=== PATIENT | male | born 1985 | race Caucasian/White ===

== ENCOUNTER 2016-11-13 03:49 | Emergency (ER) | payer SELFPAY ==
[~2016-11-13] VITALS: Ht 185.4 cm; Wt 103.0 kg
[~2016-11-13 03:49] MED LIST: IBUP600 PO; PENI500T PO; PERC5TAB12 PO; TAMS0.4C67 PO; TRAM50TA PO
[2016-11-13 03:54] VITALS: BP 163/118; PULSE 85; RESP 16; TEMP 97.8; O2SAT 99
[2016-11-13] MEDS ORDERED: SODIUM CHLOR 0.9% 1000 ML INJ 1,000 ML IV ONE (04:03)
--- NOTE | 2016-11-13 04:06 | PD ---
HPI Chief Complaint: flank pain Time Seen by Provider: 04:03 Travel History International Travel<30 days: No Contact w/Intl Traveler<30days: No Traveled to known affect area: No History of Present Illness HPI 31-year-old male presents to the emergency department for sudden onset right flank pain that awakened him from sleep 1 hour prior to arrival to the emergency department with associated nausea and diaphoresis. Patient reports 1 year ago was diagnosed with kidney stone. No fever no chills no hematemesis no coffee-ground emesis no melena hematochezia. No reported dysuria frequency urgency or hematuria. Pain is severe and unremitting. No medications prior to arrival to the emergency department. PFSH Past Medical History Narrative Medical Kidney stones; tobacco use marijuana use; nursing notes reviewed Diminished Hearing: No Social History Alcohol Use: No (NOT FOR 2 YEARS) Tobacco Use: Yes Substance Use: Yes (MARIJUANA OCC) Allergies-Medications (Allergen,Severity, Reaction): Coded Allergies: Shellfish (Verified Allergy, Severe, Anaphylaxis, 11/13/16) Reported Meds & Prescriptions Reported Meds & Active Scripts Active Percocet (Oxycodone-Acetaminophen) 5-325 mg Tab 1 Tab PO Q6H PRN Ibuprofen 800 Mg Tab 800 Mg PO Q8H PRN Flomax (Tamsulosin HCl) 0.4 Mg Cap 0.4 Mg PO HS Zofran Odt (Ondansetron Odt) 4 Mg Tab 4 Mg SL Q6HR PRN Penicillin V Potassium 500 Mg Tab 500 Mg PO Q8H Tramadol (Tramadol HCl) 50 Mg Tab 50 Mg PO Q6H PRN Flomax (Tamsulosin HCl) 0.4 Mg Cap 0.4 Mg PO DAILY Motrin 600 Mg Tab (Ibuprofen) 600 Mg Tab 600 Mg PO Q6H PRN Percocet 5-325 mg (Oxycodone/Acetaminophen) 1 Tab 1 Tab PO Q6H PRN Review of Systems Except as stated in HPI: all other systems reviewed are Neg General / Constitutional: No: Fever HENT: No: Congestion Cardiovascular: No: Chest Pain or Discomfort Respiratory: No: Shortness of Breath Gastrointestinal: Positive: Nausea, No: Abdominal Pain Genitourinary: Positive: Flank Pain, No: Dysuria, Hematuria Musculoskeletal: No: Myalgias, Arthralgias Skin: No Rash Neurologic: No: Weakness Psychiatric: No: Anxiety Hematologic/Lymphatic: No: Lymph Node Enlargement Physical Exam Narrative GENERAL: Well-developed well-nourished male in obvious discomfort holding the right flank SKIN: Warm and dry. HEAD: Normocephalic. EYES: No scleral icterus. No injection or drainage. NECK: Supple, trachea midline. No JVD or lymphadenopathy. CARDIOVASCULAR: Regular rate and rhythm without murmurs, gallops, or rubs. RESPIRATORY: Breath sounds equal bilaterally. No accessory muscle use. GASTROINTESTINAL: Abdomen soft, non-tender, nondistended. MUSCULOSKELETAL: No cyanosis, or edema. BACK: Nontender without obvious deformity. Right CVA tenderness. Data Data Last Documented VS Vital Signs Date Time Temp Pulse Resp B/P Pulse Ox O2 Delivery O2 Flow Rate FiO2 11/13/16 04:15 20 11/13/16 03:54 97.8 85 163/118 99 Orders Complete Blood Count With Diff (11/13/16 04:03) Basic Metabolic Panel (Bmp) (11/13/16 04:03) Urinalysis - C+S If Indicated (11/13/16 04:03) Ct Abd/Pel W/O Iv Contrast (11/13/16 04:03) Ecg Monitoring (11/13/16 04:03) Iv Access Insert/Monitor (11/13/16 04:03) Ketorolac Inj (Toradol Inj) (11/13/16 04:15) Ondansetron Inj (Zofran Inj) (11/13/16 04:15) Sodium Chloride 0.9% Flush (Ns Flush) (11/13/16 04:15) Sodium Chlor 0.9% 1000 Ml Inj (Ns 1000 M (11/13/16 04:03) Tamsulosin (Flomax) (11/13/16 05:00) Labs Laboratory Tests Test 11/13/16 11/13/16 04:00 05:05 White Blood Count 9.9 TH/MM3 Red Blood Count 5.39 MIL/MM3 Hemoglobin 15.8 GM/DL Hematocrit 46.6 % Mean Corpuscular Volume 86.5 FL Mean Corpuscular Hemoglobin 29.4 PG Mean Corpuscular Hemoglobin 34.0 % Concent Red Cell Distribution Width 12.2 % Platelet Count 223 TH/MM3 Mean Platelet Volume 8.9 FL Neutrophils (%) (Auto) 56.6 % Lymphocytes (%) (Auto) 33.7 % Monocytes (%) (Auto) 6.7 % Eosinophils (%) (Auto) 2.1 % Basophils (%) (Auto) 0.9 % Neutrophils # (Auto) 5.6 TH/MM3 Lymphocytes # (Auto) 3.3 TH/MM3 Monocytes # (Auto) 0.7 TH/MM3 Eosinophils # (Auto) 0.2 TH/MM3 Basophils # (Auto) 0.1 TH/MM3 CBC Comment DIFF FINAL Differential Comment Sodium Level 145 MEQ/L Potassium Level 4.1 MEQ/L Chloride Level 110 MEQ/L Carbon Dioxide Level 25.2 MEQ/L Anion Gap 10 MEQ/L Blood Urea Nitrogen 12 MG/DL Creatinine 1.00 MG/DL Estimat Glomerular Filtration 87 ML/MIN Rate Random Glucose 108 MG/DL Calcium Level 8.9 MG/DL Urine Color GALI Urine Turbidity MOD Urine pH 5.5 Urine Specific [place] 1.022 Urine Protein TRACE mg/dL Urine Glucose (UA) NEG mg/dL Urine Ketones NEG mg/dL Urine Occult Blood LARGE Urine Nitrite NEG Urine Bilirubin NEG Urine Leukocyte Esterase NEG Urine RBC INNUM /hpf Urine Squamous Epithelial 0-5 /hpf Cells Urine Mucus MANY /lpf Urine Yeast (Budding) FEW Microscopic Urinalysis Comment CULT NOT INDICATED MDM Medical Decision Making Medical Screen Exam Complete: Yes Emergency Medical Condition: Yes Medical Record Reviewed: Yes Interpretation(s) UA: lg blood innum rbc's cx not indicated Last Impressions Abdomen/Pelvis CT 11/13/16 0403 Signed Impressions: Service Date/Time: Sunday, November 13, 2016 04:10 - CONCLUSION: 1. Mild obstructive uropathy on the right secondary to right UVJ calculus measuring 2 mm. 2. Punctate nonobstructing right renal calculus measuring 2 mm. 3. Diverticulosis without diverticulitis. Dimitry Menjivar MD CBC & BMP Diagram 11/13/16 04:00 Vital Signs Date Time Temp Pulse Resp B/P Pulse Ox O2 Delivery O2 Flow Rate FiO2 11/13/16 04:15 20 11/13/16 03:54 97.8 85 16 163/118 99 Differential Diagnosis renal colic obstructive uropathy uti Narrative Course Patient placed on monitor; IV access obtained; patient administered 1 L normal saline, Zofran 4 mg IV, and Toradol 30 mg IV; CT abdomen and pelvis kidney stone protocol ordered @ 4:55 am patient identified to have a distal right ureteral UVJ 2 mm stone with mild obstructive uropathy; patient reports symptoms improved At 5:24 AM urinalysis is consistent with blood culture not indicated; pain is 0/ 10 in intensity; patient is stable for outpatient management Diagnosis Primary Impression: Right nephrolithiasis Additional Impression: Obstructive uropathy Referrals: Urologist call for appointment Patient Instructions: General Instructions Med/Other Pt SpecificInfo: Prescription(s) given Scripts Oxycodone-Acetaminophen (Percocet)5-325 mg Tab1 Tab PO Q6H PRN (PAIN) #12 TAB Ref 0 Prov:Giuliana Avila MD 11/13/16 Ibuprofen 800 Mg Rxj851 Mg PO Q8H PRN (PAIN GREATER THAN 5) #12 TAB Ref 0 Prov:Giuliana Avila MD 11/13/16 Tamsulosin (Flomax)0.4 Mg Cap0.4 Mg PO HS #7 CAP Ref 0 Prov:Giuliana Avila MD 11/13/16 Ondansetron Odt (Zofran Odt)4 Mg Tab4 Mg SL Q6HR PRN (Nausea/Vomiting) #10 TAB Ref 0 Prov:Giuliana Avila MD 11/13/16 Disposition: 01 DISCHARGE HOME Condition: Stable Giuliana Avila MD Nov 13, 2016 04:06
[2016-11-13 04:13] LABS: AUTOMATED NEUTROPHIL # 5.6 TH/MM3 (1.8-7.7); BASOPHIL # 0.1 TH/MM3 (0-0.2); BASOPHIL % 0.9 % (0.0-2.0); EOSINOPHIL # 0.2 TH/MM3 (0-0.4); EOSINOPHIL % 2.1 % (0.0-4.0); HEMATOCRIT 46.6 % (39.0-51.0); LYMPH % 33.7 % (9.0-44.0); LYMPHOCYTE # 3.3 TH/MM3 (1.0-4.8); MEAN CELL VOLUME 86.5 FL (80.0-100.0); MEAN CORPUSCULAR HEMOGLOBIN 29.4 PG (27.0-34.0); MONO % 6.7 % (0.0-8.0); NEUT % 56.6 % (16.0-70.0); PLATELET COUNT 223 TH/MM3 (150-450); RED BLOOD COUNT 5.39 MIL/MM3 (4.50-5.90); RED CELL DISTRIBUTION WIDTH 12.2 % (11.6-17.2); WHITE BLOOD COUNT 9.9 TH/MM3 (4.0-11.0)
[2016-11-13] MEDS ORDERED: ONDANSETRON HCL 4 MG/2 ML VIAL IVP ONE (04:15)
[2016-11-13] MEDS ORDERED: KETOROLAC TROMETHAMINE 30 MG/ML (IVP) VIAL IVP ONE (04:15)
[2016-11-13] MEDS ORDERED: SODIUM CHLORIDE 0.9% FLUSH 10 ML FLUSH IVF PRN (04:15)
[2016-11-13 04:17] LABS: HEMO FLAGS DIFF FINAL
[2016-11-13 04:26] LABS: POTASSIUM 4.1 MEQ/L (3.5-5.1)
[2016-11-13 04:29] LABS: BICARBONATE 25.2 MEQ/L (21.0-32.0)
--- NOTE | 2016-11-13 04:35 | RADRPT ---
EXAM DATE/TIME: 11/13/2016 04:10 [facility] COMPARISON: No previous studies available for comparison. INDICATIONS : Right flank pain. ORAL CONTRAST: No oral contrast ingested. RADIATION DOSE: 23.04 CTDIvol (mGy) MEDICAL HISTORY : None SURGICAL HISTORY : None. ENCOUNTER: Initial ACUITY: 1 day PAIN SCALE: 8/10 LOCATION: Right flank TECHNIQUE: Volumetric scanning of the abdomen and pelvis was performed. Using automated exposure control and ad justment of the mA and/or kV according to patient size, radiation dose was kept as low as reasonably achievable to obtain optimal diagnostic quality images. DICOM format image data is available electro nically for review and comparison. FINDINGS: LOWER LUNGS: The visualized lower lungs are clear. LIVER: Homogeneous density without lesion. There is no dilation of the biliary tree. No calcified gallston es. SPLEEN: Normal size without lesion. PANCREAS: Within normal limits. KIDNEYS: Normal in size and shape. There is no mass, stone, or hydronephrosis. No hydronephrosis secondary to right UPJ calculus measuring 2 mm. There is a 2 mm nonobstructing right renal calculus. Small right renal low density.. ADRENAL GLANDS: Within normal limits. VASCULAR: There is no aortic aneurysm. BOWEL/MESENTERY: Diverticulosis without diverticulitis. There is no free intraperitoneal air or fluid. ABDOMINAL WALL: Within normal limits. RETROPERITONEUM: There is no lymphadenopathy. BLADDER: No wall thickening or mass. REPRODUCTIVE: Within normal limits. INGUINAL: There is no lymphadenopathy or hernia. MUSCULOSKELETAL: Within normal limits for patient age. CONCLUSION: 1. Mild obstructive uropathy on the right secondary to right UVJ calculus measuring 2 mm. 2. Punctate nonobstructing right renal calculus measuring 2 mm. 3. Diverticulosis without diverticulitis. Dimitry Menjivar MD on November 13, 2016 at 4:32 Board Certified Radiologist. This report was verified electronically.
[2016-11-13] MEDS ORDERED: PERC5TAB12 PO (04:50)
[2016-11-13] MEDS ORDERED: IBUP800T23 PO (04:50)
[2016-11-13] MEDS ORDERED: ZOFR4TAB3 SL (04:50)
[2016-11-13] MEDS ORDERED: TAMS5CAP PO (04:50)
[2016-11-13] MEDS ORDERED: TAMSULOSIN HCL 0.4 MG CAP PO ONE (05:00)
[2016-11-13 05:09] LABS: BLOOD, URINE LARGE (NEG); GLUCOSE,URINE NEG (NEG); KETONE, URINE NEG (NEG); NITRITE,URINE NEG (NEG); PH, URINE 5.5 (5.0-8.5)
[2016-11-13 05:16] LABS: MUCUS URINE MANY /lpf (OCC); RBC, URINE INNUM /hpf (0-3); URINE COLOR AMBER (YELLW/STRAW)
[2016-11-13 05:17] LABS: SQUAMOUS EPITHELIAL CELL URINE 0-5 /hpf (0-5)
[2016-11-13 05:18] LABS: COMMENT (UR) CULT NOT INDICATED; CULTURE IF INDICATED CULT NOT INDICATED
[2016-11-13 05:38] VITALS: BP 147/80
== END 2016-11-13 05:43 | disposition home or self-care (01) ==
LOC: PHED 03:49
DX: N13.5 Crossing vessel and stricture of ureter without hydronephrosis (principal); N20.2 Calculus of kidney with calculus of ureter; Z87.442 Personal history of urinary calculi; Z72.0 Tobacco use
CPT/HCPCS: 74176; 80048; 81001; 85025; 96374; 96375; 99285; J1885; J2405; J7030